=== PATIENT | female | born 1955 | race African-American/Black ===

== ENCOUNTER → 2018-07-12 | Day surgery (SDC) | payer OTHER ==
[~2018-07-12] MED LIST: ALBU2.5V8 INH; ATOR10TA60 PO; DULA1.5P SQ; GABA600T7 PO; LIDOCAINE 2%/EPI 1:100,000 20 ML VIAL. IJ ONE; LOSA1TAB22 PO; METH-364 PO; METO25TA4 PO; OMEP40CA5 PO; TRAM50TA PO
[2018-07-12 07:39] VITALS: BP 124/70
--- NOTE | 2018-07-13 17:11 | PATHOLOGY ---
[facility] Accession Number: [id number] . 01 Material submitted: . POSTERIOR NECK MASS . 01 Clinical history: . Neck mass . 02 Diagnosis: Skin and subcutaneous tissue, "posterior neck mass", excision: - Unremarkable squamous epithelium with mild to moderately increased subcutaneous fibrous tissue. (SKM:yoli; 07/13/2018) QMS/07/13/2018 . 02 Electronically signed: . Isidro Crane MD, Pathologist NPI- [id number] . 01 Gross description: . The specimen is received in formalin, labeled "Caitlyn Power, posterior neck mass" and consists of an elongate segment of brown skin measuring 1.3 x 0.2 cm with underlying pink-everett tissue measuring 1.0 x 0.5 x 0.3 cm. It is serially sectioned and entirely submitted in A1. (SDY; 07/12/2018) SYU/SYU . 02 Pathologist provided ICD-10: R22.1 . 02 CPT . 517453 Specimen Comment: A courtesy copy of this report has been sent to Specimen Comment: [phone], . Specimen Comment: Report sent to / DR SHAW Specimen Comment: A duplicate report has been generated due to demographic updates. Performed at: 01 [facility] [address], [place] [id number] MD Preston Sifuentes MD Phone: [phone] Performed at: 02 [facility] [address] [place], [place] [id number] MD Geremias Sandhu MD Phone: [phone]
--- NOTE | 2018-07-18 15:19 | PDOC4 ---
Operative Note Operative Note Date: 07/12/2018 Preoperative diagnosis: Posterior neck mass Postoperative diagnosis: Same Procedure: Excision of posterior neck mass Surgeon: Donell Specimen: Posterior neck mass Dictation: Patient is a 63-year-old female had appears to be a sebaceous cyst on the posterior neck and on antibiotics for a week inflammation is improved she comes in for excision of mass. Area of the neck was prepped and draped usual sterile fashion using ChloraPrep area around the mass was injected with 1 % lidocaine with epinephrine once this was anesthetized incision was made with 15 blade scalpel was carried down through the subcutaneous tissue excising appeared to be a sebaceous cyst with Metzenbaum scissors. Wound was then closed in one layer of 4-0 Monocryl in a subcuticular fashion Mastisol Steri-Strips and island dressing were applied. Patient tolerated procedure well was discharged home in stable condition all sponge instrument and needle counts listed as correct estimated blood loss less than 5 mL TIFFANIE HOFFMANN MD Jul 18, 2018 15:19
== END | disposition home or self-care (01) ==
LOC: SURG 07:14
PROVIDERS: ATTEND Surgery
DX: R22.1 Localized swelling, mass and lump, neck (principal); I10 Essential (primary) hypertension; E11.65 Type 2 diabetes mellitus with hyperglycemia; K21.9 Gastro-esophageal reflux disease without esophagitis; E11.40 Type 2 diabetes mellitus with diabetic neuropathy, unspecified; M15.9 Polyosteoarthritis, unspecified; Z98.890 Other specified postprocedural states; Z83.3 Family history of diabetes mellitus; Z82.49 Family history of ischemic heart disease and other diseases of the circulatory system; Z90.49 Acquired absence of other specified parts of digestive tract; Z88.6 Allergy status to analgesic agent; Z79.899 Other long term (current) drug therapy; Z79.84 Long term (current) use of oral hypoglycemic drugs
CPT/HCPCS: 11423; 88305; J3490